=== PATIENT | female | born 1965 | race Caucasian/White ===

== ENCOUNTER 2017-05-21 07:14 | Day surgery (SDC) | payer OTHER ==
[2017-05-21] MEDS ORDERED: LACTATED RINGERS 1,000 ML IV ONE (07:55)
[2017-05-21] MEDS ORDERED: MIDAZOLAM 2 MG/2 ML VIAL IVP ONE (08:07)
[2017-05-21] MEDS ORDERED: fentaNYL 100 MCG/2 ML VIAL IVP ONE (08:07)
[2017-05-21 08:58] VITALS: BP 110/81
== END 2017-05-21 07:15 | disposition home or self-care (01) ==
LOC: SDS 07:14
PROVIDERS: ATTEND Surgery
PROC: 0DJD8ZZ Inspection of Lower Intestinal Tract, Via Natural or Artificial Opening Endoscopic (ICD-10-PCS; principal; 2017-05-21 08:15)
DX: Z12.11 Encounter for screening for malignant neoplasm of colon (principal); K57.30 Diverticulosis of large intestine without perforation or abscess without bleeding; K64.8 Other hemorrhoids; K21.9 Gastro-esophageal reflux disease without esophagitis; F41.9 Anxiety disorder, unspecified; F32.9 Major depressive disorder, single episode, unspecified
CPT/HCPCS: 45378; J7120

== ENCOUNTER 2019-09-26 14:26 | Outpatient (CLI) | payer OTHER | END 2019-09-26 14:27 | disposition home or self-care (01) | LOC: LAB 14:26 | DX: Z20.828 Contact with and (suspected) exposure to other viral communicable diseases (principal) | CPT/HCPCS: 81599 ==